=== PATIENT | male | born 1955 | race Caucasian/White ===

== ENCOUNTER → 2018-07-23 | Outpatient (REF) | payer BC ==
[2018-07-23 18:39] LABS: TOTAL PROTEIN,RANDOM URINE < 5.0 MG/DL (0.0-12.0)
== END ==
LOC: M LAB REF 17:05
DX: R80.9 Proteinuria, unspecified (principal)

== ENCOUNTER → 2019-01-26 | Outpatient (REF) | payer BC ==
[2019-01-26 15:54] LABS: URINE TOTAL PROTEIN 12.4 MG/DL (0-12)
[2019-01-26 19:21] LABS: TOTAL PROTEIN 24 HOUR URINE 265.9 MG/24HR (50-150)
== END ==
LOC: M LAB REF 15:22
PROVIDERS: ATTEND Internal Medicine Nephrology
DX: R80.9 Proteinuria, unspecified (principal)

== ENCOUNTER → 2022-03-06 | Outpatient (REF) | payer MEDICARE, BC ==
[2022-03-06 18:04] LABS: CREATININE,RANDOM URINE 88.1 MG/DL
== END ==
LOC: M LAB REF 17:13
PROVIDERS: ATTEND Nurse Practitioner Family
DX: R80.9 Proteinuria, unspecified (principal)

== ENCOUNTER → 2023-03-05 | Outpatient (REF) | payer MEDICARE, BC ==
[2023-03-05 18:47] LABS: TOTAL PROTEIN,RANDOM URINE 29.7 MG/DL (0.0-14.0)
[2023-03-05 18:52] LABS: CREATININE,RANDOM URINE 159.5 MG/DL
== END ==
LOC: M LAB REF 17:41
PROVIDERS: ATTEND Nurse Practitioner Family
DX: R80.9 Proteinuria, unspecified (principal)

== ENCOUNTER → 2024-05-04 | Outpatient (CLI) | payer MEDICARE | LOC: M PLAIMG 09:26 | PROVIDERS: ATTEND Physician Assistant | DX: I42.0 Dilated cardiomyopathy (principal); I35.1 Nonrheumatic aortic (valve) insufficiency; I77.810 Thoracic aortic ectasia ==

== ENCOUNTER → 2024-06-21 | Outpatient (CLI) | payer MEDICARE ==
[2024-06-21 09:31] LABS: ALBUMIN 3.8 G/DL (3.2-5.2); BILIRUBIN,DIRECT 0.4 MG/DL (<0.4); BILIRUBIN,TOTAL 1.1 MG/DL (0.3-1.2); CHOLESTEROL RISK RATIO 2.17 (<5); HDL CHOLESTEROL 50.5 MG/DL (>40); LDL CHOLESTEROL 49.5 MG/DL (<100); NON-HDL-C 59.5 MG/DL; TOTAL PROTEIN 6.7 G/DL (5.7-8.2)
== END ==
LOC: M LAB 08:34
PROVIDERS: ATTEND Physician Assistant
DX: E78.00 Pure hypercholesterolemia, unspecified (principal)